=== PATIENT | male | born 1945 | race Caucasian/White ===

== ENCOUNTER 2019-12-18 00:42 | Emergency (ER) | payer MEDICARE, OTHER ==
[~2019-12-18] VITALS: Ht 177.8 cm; Wt 94.5 kg
[~2019-12-18 00:42] MED LIST: ALPR-624 PO; ASPI-1265 PO; ATOR10TA70 PO; HYDR25TA4 PO; LEVO50TA8 PO; METO25TA6 PO; NITROGLYCERINE SL; OXYC-150 PO; PANT-47 PO; TOLV15TA PO; TRAM50TA2 PO
[2019-12-18] MEDS ORDERED: aspirin 81mg tab.chew PO ONE (00:50)
[2019-12-18 01:12] LABS: BASOPHILS # (AUTO) 0.1 X10'3 (0-0.2); BASOPHILS % (AUTO) 0.9 % (0-1); EOSINOPHILS # (AUTO) 0.4 X10'3 (0-0.9); EOSINOPHILS % (AUTO) 5.8 % (0-6); HEMATOCRIT 47.8 % (42.0-52.0); LYMPHOCYTES # (AUTO) 1.9 X10'3 (1.1-4.8); LYMPHOCYTES % (AUTO) 30.6 % (21-51); MEAN CORPUSCULAR HEMOGLOBIN 30.1 PG (27.0-31.0); MEAN CORPUSCULAR HGB CONC 33.4 g/dL (33.0-36.5); MEAN CORPUSCULAR VOLUME 89.9 FL (78-98); MEAN PLATELET VOLUME 9.2 FL (7.4-10.4); MONOCYTES # (AUTO) 0.7 X10'3 (0-0.9); MONOCYTES % (AUTO) 10.4 % (2-12); NEUTROPHILS # (AUTO) 3.3 X10'3 (1.8-7.7); NEUTROPHILS % (AUTO) 52.3 % (42-75); PLATELET COUNT 179 X10'3 (140-440); RED BLOOD COUNT 5.31 X10'6 (4.70-6.10); RED CELL DISTRIBUTION WIDTH 14.1 % (11.5-14.5); WHITE BLOOD COUNT 6.3 X10'3 (4.5-11.0)
[2019-12-18] MEDS ORDERED: pantoprazole 40 MG vial IV ONE (01:15)
[2019-12-18] MEDS ORDERED: famotidine/PF 10 mg/ml inj IV ONE (01:15)
[2019-12-18 01:18] LABS: ALANINE AMINOTRANSFERASE 33 U/L (12-78); ALBUMIN 4.1 G/DL (3.4-5.0); ALBUMIN/GLOBULIN RATIO 1.4 (1.1-1.5); ALKALINE PHOSPHATASE 42 IU/L (46-116); ANION GAP 7 (8-16); ASPARTATE AMINO TRANSFERASE 21 U/L (10-37); BILIRUBIN,TOTAL 0.5 MG/DL (0.1-1.0); BLOOD UREA NITROGEN 18 MG/DL (7-18); BUN/CREATININE RATIO 13.3 (5.4-32.0); CALCIUM 9.6 MG/DL (8.5-10.1); CHLORIDE 105 MMOL/L (99-107); CREATININE 1.35 MG/DL (0.60-1.10); GLUCOSE 116 MG/DL (70-104); POTASSIUM 3.8 MMOL/L (3.5-5.1); SODIUM 141 MMOL/L (135-145); TOTAL CARBON DIOXIDE 28.6 MMOL/L (24-32); TOTAL PROTEIN 7.1 G/DL (6.4-8.2); eGFR 52 ML/MIN
[2019-12-18 01:25] LABS: MAGNESIUM 2.1 MG/DL (1.5-2.4)
[2019-12-18] MEDS ORDERED: sucralfate 1gm/10ml UD suspension PO SCH (01:35)
[2019-12-18] MEDS ORDERED: LIDOcaine Viscous 15ml cup MM PRN (01:35)
[2019-12-18] MEDS ORDERED: mag hydrox/Alum hydrox/simeth 30ml oral suspension PO ONE (01:35)
[2019-12-18] MEDS ORDERED: nitroGLYCERIN 0.4mg SUBLingual tab SL PRN ×2 (01:35→02:15)
[2019-12-18] MEDS ORDERED: ondansetron/PF 4mg/2ml inj IV PRN (02:15)
[2019-12-18] MEDS: morphine 4 MG/ML inj SYRINge IV PRN ×2 (02:21→03:04)
--- NOTE | 2019-12-18 03:54 | NUR ---
PT APPEARS TO BE SLEEPING PEACEFULLY. NO NEEDS AT THIS TIME. WILL CONTINUE TO [facility]TI[facility].
[2019-12-18] MEDS ORDERED: FAMO20TA44 PO (04:22)
[2019-12-18] MEDS ORDERED: SUCR1TAB34 PO (04:22)
[2019-12-18] MEDS ORDERED: ONDA4TAB6 PO (04:22)
[2019-12-18] MEDS ORDERED: OMEP20CA15 PO (04:22)
[2019-12-18 04:28] VITALS: BP 163/81
== END 2019-12-18 04:51 | disposition home or self-care (01) ==
LOC: ER 00:42
DX: R10.13 Epigastric pain (principal); I25.10 Atherosclerotic heart disease of native coronary artery without angina pectoris; N18.9 Chronic kidney disease, unspecified; K21.9 Gastro-esophageal reflux disease without esophagitis; E78.00 Pure hypercholesterolemia, unspecified; I12.9 Hypertensive chronic kidney disease with stage 1 through stage 4 chronic kidney disease, or unspecified chronic kidney disease; I25.2 Old myocardial infarction; F41.9 Anxiety disorder, unspecified; Z95.0 Presence of cardiac pacemaker; Z95.5 Presence of coronary angioplasty implant and graft; Z98.890 Other specified postprocedural states; Z79.82 Long term (current) use of aspirin; Z79.899 Other long term (current) drug therapy
CPT/HCPCS: 36415; 71045; 80053; 83735; 83880; 84484; 85025; 93005; 96374; 96375; 96376; 99285; C9113; J2270; J2405; J3490; 99284

== ENCOUNTER 2021-10-12 03:11 | Inpatient (IN) | payer MEDICARE, OTHER ==
[2021-10-12] VITALS (10 sets, daily range): BP systolic 134–186; BP diastolic 64–79
[~2021-10-12] VITALS: Ht 177.8 cm; Wt 38.5 kg
[~2021-10-12 03:11] MED LIST changes: +FAMO20TA44 PO; +LOP25T PO; -METO25TA6 PO; +OMEP20CA15 PO; +ONDA4TAB6 PO; +SUCR1TAB34 PO
[2021-10-12 03:43] LABS: BASOPHILS # (AUTO) 0.1 X10'3 (0-0.2); BASOPHILS % (AUTO) 0.9 % (0-1); EOSINOPHILS # (AUTO) 0.6 X10'3 (0-0.9); EOSINOPHILS % (AUTO) 10.6 % (0-6); HEMATOCRIT 42.3 % (42.0-52.0); HEMOGLOBIN 14.4 g/dl (14.0-17.9); LYMPHOCYTES # (AUTO) 1.5 X10'3 (1.1-4.8); LYMPHOCYTES % (AUTO) 26.8 % (21-51); MEAN CORPUSCULAR HEMOGLOBIN 30.7 PG (27.0-31.0); MEAN CORPUSCULAR HGB CONC 33.9 g/dL (33.0-36.5); MEAN CORPUSCULAR VOLUME 90.5 FL (78-98); MEAN PLATELET VOLUME 9.9 FL (7.4-10.4); MONOCYTES # (AUTO) 0.6 X10'3 (0-0.9); NEUTROPHILS # (AUTO) 2.9 X10'3 (1.8-7.7); NEUTROPHILS % (AUTO) 50.7 % (42-75); PLATELET COUNT 156 X10'3 (140-440); RED BLOOD COUNT 4.67 X10'6 (4.70-6.10); RED CELL DISTRIBUTION WIDTH 13.9 % (11.5-14.5); WHITE BLOOD COUNT 5.7 X10'3 (4.5-11.0)
[2021-10-12] MEDS ORDERED: ALPR-624 PO (03:53)
[2021-10-12] MEDS ORDERED: ZOLP5TAB8 PO (03:53)
[2021-10-12] MEDS ORDERED: FENO135C PO (03:53)
[2021-10-12] MEDS ORDERED: CHOL200080 PO (03:53)
[2021-10-12] MEDS ORDERED: CHOL400C2 (03:53)
[2021-10-12] MEDS ORDERED: FLO0.4C PO (03:53)
[2021-10-12] MEDS ORDERED: ATOR10TA PO (03:53)
[2021-10-12] MEDS ORDERED: ISOS30TA9 PO (03:53)
[2021-10-12] MEDS ORDERED: DULO-31 PO (03:53)
[2021-10-12] MEDS ORDERED: AMLO1CAP3 PO (03:53)
[2021-10-12 04:05] LABS: ALBUMIN 3.5 G/DL (3.4-5.0); ANION GAP 9 (8-16); BLOOD UREA NITROGEN 21 MG/DL (7-18); BUN/CREATININE RATIO 17.2 (5.4-32.0); CALCIUM 8.8 MG/DL (8.5-10.1); CHLORIDE 106 MMOL/L (99-107); CREATININE 1.22 MG/DL (0.60-1.10); GLUCOSE 105 MG/DL (70-104); POTASSIUM 3.6 MMOL/L (3.5-5.1); SODIUM 142 MMOL/L (135-145); TOTAL CARBON DIOXIDE 27.1 MMOL/L (24-32); eGFR 58 ML/MIN
[2021-10-12] MEDS ORDERED: morphine 4 MG/ML inj SYRINge IV ONE (04:20)
--- NOTE | 2021-10-12 04:21 | NUR ---
PT REPORTS WORSENING OF CP FROM 03/21 TO 04/21. DR. DAVID VERBALLY REQUESTED AN ORDER FOR MORPHINE FOR THE PT.
[2021-10-12] MEDS ORDERED: mag hydrox/Alum hydrox/simeth 30ml oral suspension PO PRN (05:15)
[2021-10-12] MEDS ORDERED: magnesium 2GM in 50ml NS 50 ML IV PRN (05:15)
[2021-10-12] MEDS ORDERED: ondansetron/PF 4mg/2ml inj IV PRN (05:15)
[2021-10-12] MEDS ORDERED: regadenoson 0.4mg/5ml syringe IV PRN (05:15)
[2021-10-12] MEDS ORDERED: metoprolol tartrate 1mg/ml inj IV PRN (05:15)
[2021-10-12] MEDS ORDERED: morphine 2 MG/ML inj. syringe IV PRN (05:15)
[2021-10-12] MEDS ORDERED: magnesium 4gm in 100ml NS 100 ML IV PRN (05:15)
[2021-10-12] MEDS ORDERED: acetaminophen 325mg tablet PO PRN (05:15)
[2021-10-12] MEDS ORDERED: potassium Cl 20 mEq SR tablet PO PRN ×2 (05:15)
[2021-10-12] MEDS ORDERED: potassium CL 10mEq/100ml bag 100 ML IV PRN (05:15)
[2021-10-12] MEDS ORDERED: nitroGLYCERIN 0.4mg SUBLingual tab SL PRN (05:15)
[2021-10-12] MEDS ORDERED: magnesium Cl slow-release 64mg tablet PO PRN (05:15)
[2021-10-12] MEDS ORDERED: aminophylline 250mg/10ml inj. IV PRN (05:15)
[2021-10-12] MEDS ORDERED: magnesium hydroxide 30ml (MOM) UD suspension PO PRN (05:15)
[2021-10-12] MEDS ORDERED: HYDROcodone/acetaminophen 5mg/325mg tablet PO PRN (05:15)
[2021-10-12] MEDS ORDERED: albuterol 2.5 MG/3 ML nebule NEB PRN (05:20)
[2021-10-12] MEDS ORDERED: CefTRIAXone 2gm/D5W 50ml BAG 50 ML IV ONE (05:20)
[2021-10-12] MEDS: normal saline 1000ml 1,000 ML IV SCH ×2 (06:11→19:33)
[2021-10-12] MEDS: K and/or MAG REPLACEMENT MC SCH ×2 (08:00→20:00)
[2021-10-12] MEDS: pantoprazole 40mg Tablet.DR PO SCH (08:21)
[2021-10-12] MEDS: heparin, porcine 5000 units/ml vial SQ SCH ×2 (08:23→17:51)
[2021-10-12] MEDS ORDERED: ISOS30TA84 PO (12:42)
--- NOTE | 2021-10-12 12:56 | NUR ---
PAGER ID: [phone] MESSAGE: [email or web address], [phone] BAL REPORT IS AVAILABLE. THX
[2021-10-12] MEDS ORDERED: ONDA-103 PO (13:07)
[2021-10-12] MEDS ORDERED: temazepam 15mg capsule PO PRN (21:00)
[2021-10-12] MEDS: acetaminophen 325mg tablet PO PRN (22:01)
[2021-10-13] MEDS ORDERED: hydrALAZINE 20mg/ml inj. IV PRN (05:40)
--- NOTE | 2021-10-13 05:57 | NUR ---
LOTREL 5/40MG FOR bp AT HOME
[2021-10-13 06:00] VITALS: BP_SYST 183; BP_SYST 187; BP_DIAS 74; BP_DIAS 81
[2021-10-13 06:49] LABS: BASOPHILS % (AUTO) 0.7 % (0-1); EOSINOPHILS # (AUTO) 0.6 X10'3 (0-0.9); EOSINOPHILS % (AUTO) 12.3 % (0-6); HEMATOCRIT 45.9 % (42.0-52.0); HEMOGLOBIN 15.5 g/dl (14.0-17.9); LYMPHOCYTES # (AUTO) 1.6 X10'3 (1.1-4.8); LYMPHOCYTES % (AUTO) 29.7 % (21-51); MEAN CORPUSCULAR HEMOGLOBIN 30.7 PG (27.0-31.0); MEAN CORPUSCULAR HGB CONC 33.8 g/dL (33.0-36.5); MEAN CORPUSCULAR VOLUME 90.9 FL (78-98); MONOCYTES # (AUTO) 0.4 X10'3 (0-0.9); NEUTROPHILS # (AUTO) 2.6 X10'3 (1.8-7.7); NEUTROPHILS % (AUTO) 49.3 % (42-75); PLATELET COUNT 169 X10'3 (140-440); RED BLOOD COUNT 5.05 X10'6 (4.70-6.10); RED CELL DISTRIBUTION WIDTH 13.6 % (11.5-14.5); WHITE BLOOD COUNT 5.2 X10'3 (4.5-11.0)
[2021-10-13 07:33] LABS: ALANINE AMINOTRANSFERASE 24 U/L (12-78); ALBUMIN 3.7 G/DL (3.4-5.0); ALBUMIN/GLOBULIN RATIO 1.4 (1.1-1.5); ALKALINE PHOSPHATASE 40 IU/L (46-116); ANION GAP 6 (8-16); ASPARTATE AMINO TRANSFERASE 12 U/L (10-37); BILIRUBIN,TOTAL 0.5 MG/DL (0.1-1.0); BLOOD UREA NITROGEN 19 MG/DL (7-18); BUN/CREATININE RATIO 14.6 (5.4-32.0); CHLORIDE 107 MMOL/L (99-107); GLUCOSE 97 MG/DL (70-104); POTASSIUM 4.7 MMOL/L (3.5-5.1); SODIUM 143 MMOL/L (135-145); TOTAL CARBON DIOXIDE 30.4 MMOL/L (24-32); TOTAL PROTEIN 6.4 G/DL (6.4-8.2); eGFR 54 ML/MIN
--- NOTE | 2021-10-13 07:40 | NUR ---
3011 Prudomme: please order home meds to be given. bp currently 176/85 after hydralazine prn given. thank you. Rachael PRYOR [phone] Dinh
[2021-10-13] MEDS: K and/or MAG REPLACEMENT MC SCH (08:00)
[2021-10-13] MEDS: pantoprazole 40mg Tablet.DR PO SCH (08:51)
[2021-10-13] MEDS: heparin, porcine 5000 units/ml vial SQ SCH ×2 (08:51)
[2021-10-13] MEDS: normal saline 1000ml 1,000 ML IV SCH (09:26)
[2021-10-13] MEDS ORDERED: ALPRAZolam 0.5mg tablet PO PRN (10:00)
[2021-10-13] MEDS ORDERED: zolpidem 5mg tablet PO PRN (10:00)
[2021-10-13] MEDS ORDERED: duloxetine 30mg CAPSULE.DR PO SCH (10:21)
[2021-10-13] MEDS ORDERED: aspirin 81mg tab.chew PO SCH (10:22)
[2021-10-13] MEDS ORDERED: isosorbide mononitrate 30mg tab.SR.24H PO SCH (10:23)
[2021-10-13] MEDS ORDERED: tamsulosin 0.4mg capsule PO SCH (10:23)
[2021-10-13] MEDS ORDERED: atorvastatin 10mg tablet PO SCH (10:24)
[2021-10-13] MEDS ORDERED: fenofibrate 145mg tablet PO SCH (10:27)
[2021-10-13] MEDS ORDERED: ondansetron 4mg rapidly disintigrating tab PO PRN (10:35)
[2021-10-13] MEDS ORDERED: nitroGLYCERIN 0.4mg SUBLingual tab SL PRN (10:43)
[2021-10-13] MEDS ORDERED: lisinopril 20mg tablet PO SCH (10:49)
[2021-10-13] MEDS ORDERED: amLODIPine 5mg tablet PO SCH (10:50)
[2021-10-13] MEDS: acetaminophen 325mg tablet PO PRN (10:58)
[2021-10-13 11:00] VITALS: BP 175/67
[2021-10-13 13:00] VITALS: BP 152/79
--- NOTE | 2021-10-13 13:15 | NUR ---
Discharge instructions discussed with patient. All questions answered. Pt states he understands all instructions. Pt will ambulate on own with spouse when leaving the unit.
[2021-10-13] MEDS ORDERED: BENAZEPRIL PO SCH (21:00)
[2021-10-13] MEDS ORDERED: AMLODIPINE BESYLATE PO SCH (21:00)
[2021-10-14] MEDS ORDERED: levoTHYROXINE 25mcg tablet PO SCH (08:00)
[2021-10-14] MEDS ORDERED: pantoprazole 40mg Tablet.DR PO SCH (08:00)
== END 2021-10-13 13:25 | disposition home or self-care (01) | DRG 303 ==
LOC: ER 03:12 → ED HOLD 05:17 → PCU 3S 06:40
PROVIDERS: ADMIT Internal Medicine; ATTEND Family Medicine
PROC: 4A02XM4 Measurement of Cardiac Total Activity, External Approach (ICD-10-PCS; principal; 2021-10-12)
PROC: 3E073KZ Introduction of Other Diagnostic Substance into Coronary Artery, Percutaneous Approach (ICD-10-PCS; 2021-10-12)
DX: I25.119 Atherosclerotic heart disease of native coronary artery with unspecified angina pectoris (principal); I24.9 Acute ischemic heart disease, unspecified; E11.22 Type 2 diabetes mellitus with diabetic chronic kidney disease; N18.30 Chronic kidney disease, stage 3 unspecified; Z20.822 Contact with and (suspected) exposure to COVID-19; E78.5 Hyperlipidemia, unspecified; F41.9 Anxiety disorder, unspecified; K21.9 Gastro-esophageal reflux disease without esophagitis; M54.9 Dorsalgia, unspecified; R10.13 Epigastric pain; I12.9 Hypertensive chronic kidney disease with stage 1 through stage 4 chronic kidney disease, or unspecified chronic kidney disease; I25.2 Old myocardial infarction; Z82.0 Family history of epilepsy and other diseases of the nervous system; Z82.3 Family history of stroke; Z82.5 Family history of asthma and other chronic lower respiratory diseases; Z86.711 Personal history of pulmonary embolism; Z86.74 Personal history of sudden cardiac arrest; Z87.891 Personal history of nicotine dependence; Z95.1 Presence of aortocoronary bypass graft; Z95.5 Presence of coronary angioplasty implant and graft
CPT/HCPCS: 36415; 71045; 78452; 80048; 80053; 83605; 84484; 85025; 87040; 87635; 93005; 93017; 96374; 99285; A9500; C9803; G0378; J0360; J0696; J1644; J2270; J2785; J7030